=== PATIENT | male | born 1995 ===

== ENCOUNTER → 2017-04-24 | Day surgery (SDC) | payer OTHER ==
[~2017-04-24] VITALS: Ht 170.2 cm; Wt 77.1 kg
--- NOTE | 2017-04-24 11:46 | Operative Report ---
Operative/Inv Procedure Report Surgery Date: 04/24/17 Name of Procedure: Laparoscopic right inguinal hernia repair Pre-Operative Diagnosis: Right inguinal hernia Post-Operative Diagnosis: Same Estimated Blood Loss: scant Surgeon/Court Usher: Milton Reese MD Anesthesia: general endotracheal tube Implants: Parietex right inguinal hernia mesh Operative/Procedure Note Note: After consent patient is brought to the operating room laid supine. General anesthesia was obtained and the abdomen was prepped and draped. Skin was anesthetized with local anesthesia and a transverse infraumbilical incision made sharply. We identified the rectus fascia and incised transversely. Stay sutures were placed. Rectus muscle was retracted laterally and a dissecting balloon placed posterior to it. It was inflated under direct vision the camera and replaced with a blunt Awan port. Gas was instilled. 2, 5 mm ports were placed in the infraumbilical midline after local anesthesia was instilled and under direct vision and camera. Began our dissection at the pubis and delineated the symphysis. Jero's ligament was identified and cleared. Then dissected laterally and developed the iliopubic tract. The cord structures were circumferentially dissected. There is no direct hernia. There is a large indirect hernia sac which was dissected free from the cord structures and reflected medially. Once the dissection was completed a right-sided piece of Parietex mesh was placed in the cavity. It was placed around the cord structures re-create the internal ring and cover the femoral and direct spaces as well. Due to the existence of preoperative left testicular pain, the left- sided inguinal region was explored. There was no evidence of a direct or indirect hernia. Therefore the operation was concluded. Gas was allowed to escape on maintaining proper orientation of the mesh. The fascia was closed with 0 Vicryl suture. Skin incisions closed with 4-0 Vicryl. Steri-Strips and sterile dressing applied. Sponge and needle counts are correct. Findings: Indirect Discharge Disposition: PACU CC: Celso BALTAZAR,[place]
== END ==
LOC: STS 00:44
DX: K40.20 Bilateral inguinal hernia, without obstruction or gangrene, not specified as recurrent (principal)
CPT/HCPCS: C1781; C9399; J0690; J2250